=== PATIENT | male | born 1965 | race Caucasian/White ===

== ENCOUNTER 2018-09-22 18:56 | Inpatient (IN) | payer OTHER ==
--- OUTSIDE RECORDS SUMMARY | 2018-09-22 18:58 | XMS REPORT ---
:1965 [facility] Address [address] [place] [address] [address] [place] [address] Care Team Providers Name Role Phone Unavailable Unavailable Unavailable Payers Payer Name Policy Type Policy Number Effective Date Expiration Date Problems This patient has no known problems. Allergies, Adverse Reactions, Alerts Allergy Allergy Status Severity Reaction(s) Onset Inactive Treating Comments Name Type Date Date Clinician No Known DA Active U 2018-06 Allergies 23 00:00:0 0 Medications This patient has no known medications. Results Test Description Test Time Test Comments Text Results Atomic Results Result Comments CBC W/O DIFF 2018-07-18 05:45:00 Test Item Value Reference Range Comments WHITE BLOOD CELL (test code=WBC) 8.0 K/mm3 4.5-12.5 RED BLOOD CELL (test code=RBC) 4.24 mill/mm3 4.0-5.8 HEMOGLOBIN (test code=HGB) 13.7 gram/dL 13.0-17.5 RESULT VERIFIED BY REPEAT ANALYSIS HEMATOCRIT (test code=HCT) 40.5 % 42.0-52.0 MEAN CELL VOLUME (test code=MCV) 95.5 fL 80-98 MEAN CELL HGB (test code=MCH) 32.3 picogram 27.0-33.0 MEAN CELL HGB CONCETRATION (test 33.8 gram/dL 33.0-36.0 code=MCHC) RED CELL DISTRIBUTION WIDTH (test 12.5 % 11.6-16.2 code=RDW) PLATELET COUNT (test code=PLT) 171 K/mm3 150-450 MEAN PLATELET VOLUME (test 10.5 fL 6.7-11.0 code=MPV) - XR ABDOMEN AP 1 [id number] 12:16:00 FAX: Raquel Borges MD [place]: B St: [facility] FAX: Gavin Pedraza [phone] -- Name: ARPIT PERLA [facility] : 1965 Age/S: 52/M [address] [facility] Unit #: [id number] Loc: V.[address] [place] [address] Phys: Gavin Pedraza MD Acct: [id number] Dis Date: Status: ADM IN PHONE #: [phone] Exam Date: 07/17/2018 1110 FAX #: [phone] Reason: SBO F/U. PATIENT HAD MULTIPLE BMS THIS MORNING EXAMS: CPT CODE: [id number] XR ABDOMEN AP 1 V 19438 HISTORY: Small bowel obstruction follow-up. COMPARISON: X-ray from same day. Slight decrease in the small bowel distention. Air is noted throughout the colon as well. Close follow-up recommended. No pathologic calcification. IMPRESSION: Slight decrease distention of the small bowel may suggest resolving obstruction. Close follow-up to resolution. Air is noted throughout the colon. at 1216 Reported and signed by: Justin Gamboa M.D. CC: Raquel Morris MD; Gavin Pedraza MD Technologist: RT URSULA( Isacc) Trnscrd Date/Time/By: 07/17/2018 (1216) : By: [email or web address] Orig Print D/T: S: 07/17/2018 (9543) PAGE 1 Signed ReportCOMPREHENSIVE METABOLIC [id number] 07:48:00 Test Item Value Reference Range Comments SODIUM (test code=NA) 134 mmol/L 136-145 POTASSIUM (test code=K) 4.6 mmol/L 3.5-5.1 CHLORIDE (test code=CL) 101.0 mmol/L 98-107 CARBON DIOXIDE (test 17.0 mmol/L 21-32 code=CO2) ANION GAP (test code=GAP) 20.6 10-20 GLUCOSE (test code=GLU) 87 mg/dL 74-106 BLOOD UREA NITROGEN (test 22 mg/dL 7-18 code=BUN) GLOMERULAR FILTRATION RATE 58 mL/min >=60 Estimated GFR by using (test code=GFR) Modified MDRD formula.Chronic kidney disease is defined as either kidney damageor GFR <60 mL/min/1.73 m2 for >3 months. CREATININE (test code=CREAT) 1.30 mg/dL 0.7-1.3 BUN/CREATININE RATIO (test 16.9 10-20 code=BUN/CREA) TOTAL PROTEIN (test 8.6 gram/dL 6.4-8.2 code=PROT) ALBUMIN (test code=ALB) 4.1 g/dL 3.4-5.0 GLOBULIN (test code=GLOB) 4.5 gram/dL 2.7-4.2 ALBUMIN/GLOBULIN RATIO (test 0.9 0.75-1.50 code=A/G) CALCIUM (test code=CA) 9.4 mg/dL 8.5-10.1 BILIRUBIN TOTAL (test 1.00 mg/dL 0.0-1.0 code=BILT) SGOT/AST (test code=AST) 26 IUnit/L 15-37 SGPT/ALT (test code=ALT) 32 IUnit/L 12-78 ALKALINE PHOSPHATASE TOTAL 115 IUnit/L 45-117 Note change in reference (test code=ALKP) range due to change in reagent. COMPREHENSIVE METABOLIC [id number] 07:24:00 Test Item Value Reference Range Comments SODIUM (test code=NA) 134 mmol/L 136-145 POTASSIUM (test code=K) 4.6 mmol/L 3.5-5.1 CHLORIDE (test code=CL) 101.0 mmol/L 98-107 CARBON DIOXIDE (test code=CO2) mmol/L 21-32 ANION GAP (test code=GAP) 10-20 GLUCOSE (test code=GLU) mg/dL 74-106 BLOOD UREA NITROGEN (test code=BUN) mg/dL 7-18 GLOMERULAR FILTRATION RATE (test code=GFR) mL/min >=60 CREATININE (test code=CREAT) mg/dL 0.7-1.3 BUN/CREATININE RATIO (test code=BUN/CREA) 10-20 TOTAL PROTEIN (test code=PROT) gram/dL 6.4-8.2 ALBUMIN (test code=ALB) g/dL 3.4-5.0 GLOBULIN (test code=GLOB) gram/dL 2.7-4.2 ALBUMIN/GLOBULIN RATIO (test code=A/G) 0.75-1.50 CALCIUM (test code=CA) mg/dL 8.5-10.1 BILIRUBIN TOTAL (test code=BILT) mg/dL 0.0-1.0 SGOT/AST (test code=AST) IUnit/L 15-37 SGPT/ALT (test code=ALT) IUnit/L 12-78 ALKALINE PHOSPHATASE TOTAL (test code=ALKP) IUnit/L 45-117 CBC W/AUTO [id number] 07:04:00 Test Item Value Reference Range Comments WHITE BLOOD CELL (test code=WBC) 19.4 K/mm3 4.5-12.5 RED BLOOD CELL (test code=RBC) 5.59 mill/mm3 4.0-5.8 HEMOGLOBIN (test code=HGB) 18.1 gram/dL 13.0-17.5 HEMATOCRIT (test code=HCT) 52.9 % 42.0-52.0 MEAN CELL VOLUME (test code=MCV) 94.6 fL 80-98 MEAN CELL HGB (test code=MCH) 32.4 picogram 27.0-33.0 MEAN CELL HGB CONCETRATION (test code=MCHC) 34.2 gram/dL 33.0-36.0 RED CELL DISTRIBUTION WIDTH (test code=RDW) 12.3 % 11.6-16.2 RED CELL DISTRIBUTION WIDTH SD (test 43.0 fL 37.0-51.0 code=RDW-SD) PLATELET COUNT (test code=PLT) 198 K/mm3 150-450 MEAN PLATELET VOLUME (test code=MPV) 10.5 fL 6.7-11.0 NEUTROPHIL % (test code=NT%) 87.9 % 39.0-69.0 IMMATURE GRANULOCYTE % (test code=IG%) 0.3 % 0.0-5.0 LYMPHOCYTE % (test code=LY%) 3.8 % 25.0-55.0 MONOCYTE % (test code=MO%) 7.7 % 0.0-10.0 EOSINOPHIL % (test code=EO%) 0.1 % 0.0-5.0 BASOPHIL % (test code=BA%) 0.2 % 0.0-1.0 NUCLEATED RBC % (test code=NRBC%) 0.0 % 0-0 NEUTROPHIL # (test code=NT#) 17.06 K/mm3 1.8-7.7 IMMATURE GRANULOCYTE # (test code=IG#) 0.06 x10 3/uL 0-0.03 LYMPHOCYTE # (test code=LY#) 0.74 K/mm3 1.0-5.0 MONOCYTE # (test code=MO#) 1.49 K/mm3 0-0.8 EOSINOPHIL # (test code=EO#) 0.01 K/mm3 0.0-0.5 BASOPHIL # (test code=BA#) 0.04 K/mm3 0.0-0.2 NUCLEATED RBC # (test code=NRBC#) 0.00 K/mm3 0.0-0.1 MANUAL DIFF REQUIRED (test code=MDIFF) NO - XR ABDOMEN AP 1 [id number] 04:13:00 FAX: Raquel Borges MD [phone] [place]: B St: ADM Name: ARPIT PERLA [facility] : 1965 Age/S: 52/M [address] Unit#: [id number] Loc: V.[address] [place] [address] Phys: Raquel Morris MD Acct: [id number] Dis Date: Status: ADM IN PHONE #: [phone] Exam Date: 07/17/20188 FAX #: [phone] Reason: small bowel obstruction EXAMS: CPT CODE : [id number] XR ABDOMEN AP 1 V 26739 AFTER HOURS SERVICE ON: 07/17/2018 4:12 AM Abdomen, 1 Supine View Location Code M12 History: small bowel obstruction Findings: Dilated central small bowel loops are seen in the upper abdomen measuring up to 5.0 cm. Distally, there is air and stool in the colon. The lung bases are not visualized. Impression: Findings consistent with small bowel obstruction. at 0413 Reported and signed by: Jun Castle M.D. CC: Raquel Morris MDTechnologist: Annia Gandhi Trnscrd Date/Time/By: 07/17/2018 (0413) : By: [email or web address] Orig Print D/T: S: 07/17/2018 (0416) PAGE1 Signed Report
[2018-09-22] MEDS ORDERED: NA CHLORIDE 0.9% 1,000 ML ONE ×2 (19:57→21:25)
[2018-09-22] MEDS ORDERED: ONDANSETRON 4 MG/2 ML VIAL ONE ×2 (19:57→20:55)
[2018-09-22 20:04] LABS: Absolute Lymphocytes (CBC) 0.8 K/uL (0.7-4.9); Basophils % 0.2 % (0-1.3); Eosinophils % 0.2 % (0-4.4); Hematocrit 49.6 % (39.6-49.0); Lymphocytes % 5.5 % (15.3-44.8); MPV 8.9 fL (7.6-11.3); Monocytes % 6.4 % (3.3-12.3); RBC Red Blood Cell Count 5.31 M/uL (4.33-5.43)
[2018-09-22 20:20] LABS: Albumin 4.2 g/dL (3.4-5.0); Bilirubin Direct 0.2 mg/dL (0-0.2); Bilirubin Total 0.9 mg/dL (0.2-1.0); Potassium 3.9 mmol/L (3.5-5.1); Protein, Total 8.2 g/dL (6.4-8.2)
--- NOTE | 2018-09-22 20:47 | RAD REPORT ---
EXAM DESCRIPTION: CT - Stone Protocol - 09/22/2018 8:18 pm CLINICAL HISTORY: Abdominal pain. Vomiting COMPARISON: None. TECHNIQUE: Computed axial tomography of the abdomen pelvis was obtained without oral or IV contrast. Lack of IV and oral contrast limits evaluation of solid organs, bowel, and vessels. Coronal reformat renee images were obtained and reviewed. All CT scans are performed using dose optimization technique as appropriate and may include automated exposure control or mA/KV adjustment according to patient size. FINDINGS: A renal calculus is not seen. An ureteral calculus is not noted. A bladder calculus is not present. 31 millimeter low to intermediate density lesion right lobe of liver Spleen, pancreas and adrenals appear grossly normal There is no evidence of diverticulitis. Mild to moderate dilatation of jejunum and proximal ileum. Distal ileum is decompressed. Small amount of ascites IMPRESSION: Small bowel obstruction 31 millimeter hepatic lesion does not represent a simple cyst. Ultrasound recommended for further daija luation
--- NOTE | 2018-09-22 21:07 | ER ---
Nurse's Notes [facility] Name: Rafi Crook Age: 52 yrs Sex: Male : 1965 Arrival Date: 09/22/2018 Time: 18:57 Bed 15 Private MD: Diagnosis: Other intestinal obstruction Presentation: 09/22 19:09 Presenting complaint: Patient states: Periumbilical abd pain that started at 2300 last la1 night with vomiting and some diarrhea. Pt reports similar episode about a month a half ago and said he said a high white count and almost an obstruction. Transition of care: patient was not received from another setting of care. Onset of symptoms was September 22, 2018. Risk Assessment: Do you want to hurt yourself or someone else? Patient reports no desire to harm self or others. Initial Sepsis Screen: Does the patient meet any 2 criteria? No. Patient's initial sepsis screen is negative. Does the patient have a suspected source of infection? No. Patient's initial sepsis screen is negative. Care prior to arrival: None. 19:09 Method Of Arrival: Ambulatory la1 19:09 Acuity: ANDREA 3 la1 Historical: - Allergies: 19:11 No Known Allergies; la1 - Home Meds: 19:11 lisinopril 10 mg Oral tab 1 tab once daily [Active]; Simvastatin Oral [Active]; la1 - PMHx: 19:11 Hypertension; Hyperlipidemia; la1 - PSHx: 19:11 left shoulder; la1 - Immunization history:: Adult Immunizations up to date. - Social history:: Smoking status: Patient/guardian denies using tobacco. - Ebola Screening: : No symptoms or risks identified at this time. Screenin:10 Abuse screen: Denies threats or abuse. Nutritional screening: No deficits noted. ea Tuberculosis screening: No symptoms or risk factors identified. Fall Risk None identified. Assessment: 19:10 General: Appears uncomfortable, Behavior is calm, cooperative, appropriate for age. ea Pain: Complains of pain in right lower quadrant and left lower quadrant Pain does not radiate. Pain currently is 10 out of 10 on a pain scale. Neuro: Level of Consciousness is awake, alert, obeys commands, Oriented to person, place, time, situation. Cardiovascular: Patient's skin is warm and dry. Respiratory: Airway is patent Respiratory effort is even, unlabored, Respiratory pattern is regular, symmetrical. GI: Abdomen is non-distended, Bowel sounds present X 4 quads. Abd is soft and non tender X 4 quads. Reports vomiting. Derm: Skin is pink, warm \T\ dry. 20:01 Reassessment: Patient and/or family updated on plan of care and expected duration. Pain ea level reassessed. Patient is alert, oriented x 3, equal unlabored respirations, skin warm/dry/pink. 21:14 Reassessment: Patient and/or family updated on plan of care and expected duration. Pain ea level reassessed. Patient is alert, oriented x 3, equal unlabored respirations, skin warm/dry/pink. Pt complaining of abdominal pain, provider notified, medication order obtained, medication administered, pt tolerated well. 21:59 Reassessment: Patient and/or family updated on plan of care and expected duration. Pain ea level reassessed. Patient is alert, oriented x 3, equal unlabored respirations, skin warm/dry/pink. Maggy Crook [id number] Patient states feeling better. Patient states symptoms have improved. 22:06 Reassessment: Patient and/or family updated on plan of care and expected duration. Pain ea level reassessed. Patient is alert, oriented x 3, equal unlabored respirations, skin warm/dry/pink. Report called to Prisca CONTEH. 22:26 Reassessment: Patient and/or family updated on plan of care and expected duration. Pain ea level reassessed. Patient is alert, oriented x 3, equal unlabored respirations, skin warm/dry/pink. Pt admitted to fourth floor, pt taken via stretcher per tech, pt tolerating well. No s/s of pain or discomfort noted at this time. Patient states feeling better. Patient states symptoms have improved. Vital Signs: 19:09 BP 176 / 104; Pulse 61; Resp 18; Temp 98.8; Pulse Ox 97% ; Weight 79.38 kg; Height 5 ea ft. 8 in. (172.72 cm); Pain 10/10; 20:04 BP 148 / 94; Pulse 56; Resp 18; Pulse Ox 97% on R/A; ea 21:14 BP 168 / 101; Pulse 62; Resp 18; Pulse Ox 97% ; Pain 10/10; ea 22:07 BP 116 / 73; Pulse 56; Resp 18; Temp 97.8; Pulse Ox 99% ; Pain 3/10; ea 19:09 Body Mass Index 26.61 (79.38 kg, 172.72 cm) ea ED Course: 18:57 Patient arrived in ED. as 19:08 Severiano Aguirre MD is Attending Physician. gs 19:08 Chantell Dubon, RN is Primary Nurse. ea 19:10 Triage completed. la1 19:10 Patient has correct armband on for positive identification. Bed in low position. Call ea light in reach. Side rails up X2. 19:10 Arm band placed on right wrist. Patient placed in an exam room, on a stretcher, on ea pulse oximetry. 19:50 Inserted saline lock: 20 gauge in right antecubital area, using aseptic technique. ea Blood collected. 20:02 Ultrasound completed. Patient tolerated well. sg3 20:15 CT completed. Patient tolerated procedure well. Patient moved to CT via stretcher. Patient moved back from CT. 20:18 CT Stone Protocol In Process Unspecified. EDMS 21:05 Basilio Arce MD is Hospitalizing Provider. 22:06 No provider procedures requiring assistance completed. Patient admitted, IV remains in ea place. Administered Medications: 19:49 Drug: Zofran 4 mg Route: IVP; Site: right antecubital; ea 20:10 Follow up: Response: No adverse reaction; Marked relief of symptoms ea 19:50 Drug: NS 0.9% 1000 ml Route: IV; Rate: 1 bolus; Site: right antecubital; ea 20:55 Follow up: Response: No adverse reaction; IV Status: Completed infusion; IV Intake: ea 1000ml 20:54 Drug: Zofran 4 mg Route: IVP; Site: right forearm; ea 22:08 Follow up: Response: No adverse reaction; Nausea is decreased ea 21:08 Drug: Dilaudid 0.5 mg Route: IVP; Site: right antecubital; ea 22:08 Follow up: Response: No adverse reaction; Pain is decreased ea 21:13 Drug: NS 0.9% 1000 ml Route: IV; Rate: 175 ml/hr; Site: right antecubital; ea 22:08 Follow up: IV Status: Infusion continued upon transfer ea Intake: 20:55 IV: 1000ml; Total: 1000ml. ea Outcome: 21:06 Decision to Hospitalize by Provider. 22:07 Admitted to Med/surg accompanied by tech, via stretcher, room 419, Report called to conor Cope RN 22: Condition: stable 22:07 Instructed on the need for admit. 22:27 Patient left the ED. ea Signatures: Dispatcher [employer] EDMS Wilfrid Huertas, Harish Soares RN RN la1 Chantell Dubon RN RN ea Starr, Gregory, MD MD gs Godinez, Hayley 3 Corrections: (The following items were deleted from the chart) 22:29 22:26 Reassessment: Patient and/or family updated on plan of care and expected ea duration. Pain level reassessed. Patient is alert, oriented x 3, equal unlabored respirations, skin warm/dry/pink. Pt admitted to fourth floor, pt taken via stretcher tolerating well. No s/s of pain or discomfort noted at this time. Patient states feeling better. Patient states symptoms have improved. ea
--- NOTE | 2018-09-22 21:08 | EDPHYS ---
Physician Documentation [facility] Name: Rafi Crook Age: 52 yrs Sex: Male : 1965 Arrival Date: 09/22/2018 Time: 18:57 Bed 15 Private MD: ED Physician Severiano Aguirre HPI: 09/22 21:01 This 52 yrs old Male presents to ER via Ambulatory with complaints of gs Abdominal Pain. 21:01 The patient presents with abdominal pain in the lower abdomen. Onset: The gs symptoms/episode began/occurred yesterday. The symptoms do not radiate. Associated signs and symptoms: Pertinent positives: nausea and vomiting. The symptoms are described as sharp. Modifying factors: The symptoms are alleviated by nothing, the symptoms are aggravated by food. Severity of pain: At its worst the pain was severe in the emergency department the pain is unchanged. The patient has experienced a previous episode, approximately 1 months ago. Historical: - Allergies: 19:11 No Known Allergies; la1 - Home Meds: 19:11 lisinopril 10 mg Oral tab 1 tab once daily [Active]; Simvastatin Oral [Active]; la1 - PMHx: 19:11 Hypertension; Hyperlipidemia; la1 - PSHx: 19:11 left shoulder; la1 - Immunization history:: Adult Immunizations up to date. - Social history:: Smoking status: Patient/guardian denies using tobacco. - Ebola Screening: : No symptoms or risks identified at this time. ROS: 21:01 All other systems are negative. gs Exam: 21:01 Head/Face: Normocephalic, atraumatic. Eyes: Pupils equal round and reactive to light, gs extra-ocular motions intact. Lids and lashes normal. Conjunctiva and sclera are non-icteric and not injected. Cornea within normal limits. Periorbital areas with no swelling, redness, or edema. ENT: Nares patent. No nasal discharge, no septal abnormalities noted. Tympanic membranes are normal and external auditory canals are clear. Oropharynx with no redness, swelling, or masses, exudates, or evidence of obstruction, uvula midline. Mucous membranes moist. Neck: Trachea midline, no thyromegaly or masses palpated, and no cervical lymphadenopathy. Supple, full range of motion without nuchal rigidity, or vertebral point tenderness. No Meningismus. Chest/axilla: Normal chest wall appearance and motion. Nontender with no deformity. No lesions are appreciated. Cardiovascular: Regular rate and rhythm with a normal S1 and S2. No gallops, murmurs, or rubs. Normal PMI, no JVD. No pulse deficits. Respiratory: Lungs have equal breath sounds bilaterally, clear to auscultation and percussion. No rales, rhonchi or wheezes noted. No increased work of breathing, no retractions or nasal flaring. Back: No spinal tenderness. No costovertebral tenderness. Full range of motion. Skin: Warm, dry with normal turgor. Normal color with no rashes, no lesions, and no evidence of cellulitis. MS/ Extremity: Pulses equal, no cyanosis. Neurovascular intact. Full, normal range of motion. Neuro: Awake and alert, GCS 15, oriented to person, place, time, and situation. Cranial nerves II-XII grossly intact. Motor strength 5/5 in all extremities. Sensory grossly intact. Cerebellar exam normal. Normal gait. 21:01 Constitutional: The patient appears alert, awake, uncomfortable. 21:01 Abdomen/GI: Palpation: moderate abdominal tenderness, in the right lower quadrant and left lower quadrant, rebound tenderness, is not appreciated. Vital Signs: 19:09 BP 176 / 104; Pulse 61; Resp 18; Temp 98.8; Pulse Ox 97% ; Weight 79.38 kg; Height 5 ea ft. 8 in. (172.72 cm); Pain 10/10; 20:04 BP 148 / 94; Pulse 56; Resp 18; Pulse Ox 97% on R/A; ea 21:14 BP 168 / 101; Pulse 62; Resp 18; Pulse Ox 97% ; Pain 10/10; ea 22:07 BP 116 / 73; Pulse 56; Resp 18; Temp 97.8; Pulse Ox 99% ; Pain 3/10; ea 19:09 Body Mass Index 26.61 (79.38 kg, 172.72 cm) ea MDM: 19:38 Patient medically screened. gs 21:01 Differential diagnosis: bowel obstruction, diverticulitis, gastritis, gastroesophageal gs reflux disease, non-specific abd pain, pancreatitis. Data reviewed: vital signs, nurses notes. Counseling: I had a detailed discussion with the patient and/or guardian regarding: the historical points, exam findings, and any diagnostic results supporting the discharge/admit diagnosis, lab results, radiology results, the need for further work-up and treatment in the hospital. Physician consultation: Dino Gordon MD and will see patient in inpatient room. 09/22 19:39 Order name: Basic Metabolic Panel; Complete Time: 20:46 09/22 19:39 Order name: CBC with Diff; Complete Time: 20:46 09/22 19:39 Order name: Hepatic Function; Complete Time: 20:46 09/22 19:39 Order name: Lipase; Complete Time: 20:46 09/22 19:39 Order name: CT Stone Protocol; Complete Time: 20:50 09/22 19:39 Order name: IV Saline Lock; Complete Time: 19:41 09/22 19:39 Order name: Labs collected and sent; Complete Time: 19:41 gs Administered Medications: 19:49 Drug: Zofran 4 mg Route: IVP; Site: right antecubital; ea 20:10 Follow up: Response: No adverse reaction; Marked relief of symptoms ea 19:50 Drug: NS 0.9% 1000 ml Route: IV; Rate: 1 bolus; Site: right antecubital; ea 20:55 Follow up: Response: No adverse reaction; IV Status: Completed infusion; IV Intake: ea 1000ml 20:54 Drug: Zofran 4 mg Route: IVP; Site: right forearm; ea 22:08 Follow up: Response: No adverse reaction; Nausea is decreased ea 21:08 Drug: Dilaudid 0.5 mg Route: IVP; Site: right antecubital; ea 22:08 Follow up: Response: No adverse reaction; Pain is decreased ea 21:13 Drug: NS 0.9% 1000 ml Route: IV; Rate: 175 ml/hr; Site: right antecubital; ea 22:08 Follow up: IV Status: Infusion continued upon transfer ea Disposition: 09/22/18 21:06 Hospitalization ordered by Basilio Arce for Inpatient Admission. Preliminary diagnosis is Other intestinal obstruction. - Bed requested for Telemetry/MedSurg (Inpatient). - Status is Inpatient Admission. ea - Condition is Stable. - Problem is new. - Symptoms are unchanged. UTI on Admission? No Critical care time excluding procedures: 21:01 Critical care time: Bedside Care: 10 minutes, Consultation: 10 minutes, Family gs Intervention: 10 minutes. Total time: 30 minutes Signatures: Dispatcher [employer] EDMS Harish So RN RN la1 Arianne Morris RN RN cg Chantell Dubon RN RN ea Starr, Gregory, MD MD gs Corrections: (The following items were deleted from the chart) 21:52 21:06 Hospitalization Ordered by Basilio Arce MD for Inpatient Admission. Preliminary cg diagnosis is Other intestinal obstruction. Bed requested for Telemetry/MedSurg (Inpatient). Status is Inpatient Admission. Condition is Stable. Problem is new. Symptoms are unchanged. UTI on Admission? No. gs 22:27 21:52 09/22/2018 21:06 Hospitalization Ordered by Basilio Arce MD for Inpatient ea Admission. Preliminary diagnosis is Other intestinal obstruction. Bed requested for Telemetry/MedSurg (Inpatient). Status is Inpatient Admission. Condition is Stable. Problem is new. Symptoms are unchanged. UTI on Admission? No.
[2018-09-22] MEDS ORDERED: HYDROMORPHONE HCL 0.5 MG/0.5 ML INJ ONE (21:16)
--- NOTE | 2018-09-22 21:59 | P.HP ---
Certification for Inpatient Patient admitted to: Inpatient With expected LOS: >2 Midnights Practitioner: I am a practitioner with admitting privileges, knowledge of patient current condition, hospital course, and medical plan of care. Services: Services provided to patient in accordance with Admission requirements found in Title 42 Section 412.3 of the Code of Federal Regulations Patient History Date of Service: 09/22/18 Reason for admission: SBO History of Present Illness: Mr Crook is a 52 years old male with history of HTN, Dyslipidemia, who start yesterday night with abdominal pain, diffuse, constant, later associated with nausea and vomiting. Last bowel movement last night, since so, he is not passing gas. Denied fever but has had chills. About 1 month ago, he had similar problem and was diagnosed with partial SBO, which resolved with conservative treatment. Current lab work shows Leukocytosis, CT abd and pelvis remarkable for SBO. He also has a 31 mm lesion in the liver which needs further work up. The patient's said that he has been loosing weight not intentional. The patient says that he has changed the shape of his stools in the last couple of months. - Past Medical/Surgical History -: HTN -: Dyslipidemia -: Partial SBO Past Surgical History: Reviewed- Non-Contributory - Family History Family History: Reviewed- Non-Contributory - Social History Smoking Status: Former smoker Alcohol use: Yes CD- Drugs: No Place of Residence: Home Review of Systems 10-point ROS is otherwise unremarkable Physical Examination - Physical Exam General: Alert, In no apparent distress HEENT: Atraumatic, PERRLA, Mucous membr. moist/pink, EOMI, Sclerae nonicteric Neck: Supple, 2+ carotid pulse no bruit, No LAD, Without JVD or thyroid abnormality Respiratory: Clear to auscultation bilaterally, Normal air movement Cardiovascular: Regular rate/rhythm, Normal S1 S2 Gastrointestinal: Hypoactive, Distended, Tenderness Musculoskeletal: No tenderness Integumentary: No rashes Neurological: Normal speech, Normal strength at 5/5 x4 extr, Normal tone, Normal affect Lymphatics: No axilla or inguinal lymphadenopathy - Studies Laboratory Data (last 24 hrs) 09/22/18 19:50: WBC 14.4 H, Hgb 17.3, Hct 49.6 H, Plt Count 206 09/22/18 19:50: Sodium 136, Potassium 3.9, BUN 14, Creatinine 1.25, Glucose 108 H, Total Bilirubin 0.9, AST 13 L, ALT 26, Alkaline Phosphatase 95, Lipase 140 Assessment and Plan - Problems (Diagnosis) (1) SBO (small bowel obstruction) Current Visit: Yes Status: Acute (2) HTN (hypertension) Current Visit: Yes Status: Acute Qualifiers: Hypertension type: essential hypertension Qualified Code(s): I10 - Essential (primary) hypertension (3) Dyslipidemia Current Visit: Yes Status: Acute - Plan The patient will be admitted to the hospital due to SBO. Will order NGT, IV fluids, NPO, consult Surgery team. Malignancy is within the differential diagnosis as etiology for his current symptoms, he will need GI evaluation down the road for colonoscopy. - Advance Directives Does patient have a Living Will: No Does patient have a Durable POA for Healthcare: No - Code Status/Comfort Care Code Status Assessed: Yes Code Status: Full Code
[2018-09-22] MEDS: NA CHLORIDE 0.9% 1,000 ML IV SCH (22:14)
[2018-09-22] MEDS ORDERED: ONDANSETRON 4 MG/2 ML VIAL IV PRN (22:14)
[2018-09-22] MEDS ORDERED: PHENOL 1.4% ORAL SPRAY 180ML MM PRN (23:37)
[2018-09-23] MEDS: MORPHINE 2 MG/ML SYR IV PRN ×5 (01:00→21:10)
[2018-09-23] MEDS: METRONIDAZOLE 500mg IVPB 500 MG/100 ML BAG IV SCH ×3 (01:01→16:20)
[2018-09-23] MEDS: NA CHLORIDE 0.9% 1,000 ML IV SCH ×3 (04:02→16:20)
[2018-09-23 04:27] LABS: Urine Appearance CLEAR; Urine Blood NEGATIVE (NEG); Urine Color DK YELLOW; Urine Glucose NEGATIVE (NEG); Urine Protein NEGATIVE (NEG); Urine Specific Gravity >=1.030 (1.005-1.030)
[2018-09-23 05:10] LABS: Urine Bilirubin NEGATIVE (NEG); Urine Microscopic Reflex NO UMIC
[2018-09-23 06:42] LABS: Absolute Lymphocytes (CBC) 1.4 K/uL (0.7-4.9); Basophils % 0.2 % (0-1.3); Eosinophils % 0.5 % (0-4.4); Hematocrit 50.3 % (39.6-49.0); Lymphocytes % 10.4 % (15.3-44.8); MPV 8.7 fL (7.6-11.3)
[2018-09-23 06:45] LABS: Magnesium 2.2 mg/dL (1.8-2.4); Potassium 3.8 mmol/L (3.5-5.1)
[2018-09-23] MEDS ORDERED: KCL 20 MEQ/100 mL IVPB 20 MEQ/100 ML BAG IV SCH (09:00)
[2018-09-23] MEDS ORDERED: HYDRALAZINE HCL 20 MG/ML VIAL IV PRN (09:18)
--- NOTE | 2018-09-23 09:25 | P.PN ---
Subjective Date of Service: 09/23/18 Primary Care Provider: Mariely Chief Complaint: SBO Subjective: Other (Patient feels better. Pain improved. Patient did have diarrhea this morning. NG tube in place.) Physical Examination - Vital Signs Temperature: 99.1 F Blood Pressure: 129/86 Pulse: 84 Respirations: 18 Pulse Ox (%): 97 - Physical Exam General: Alert, In no apparent distress, Oriented x3, Cooperative HEENT: Atraumatic Neck: Supple Respiratory: Clear to auscultation bilaterally, Normal air movement Cardiovascular: Normal pulses, Regular rate/rhythm Gastrointestinal: Normal bowel sounds, Soft and benign, Non-distended, No masses , No rebound, No guarding, Tenderness (Pain to the abdomen improved) Musculoskeletal: No erythema, No tenderness, No warmth Integumentary: No erythema, No warmth, No cyanosis Neurological: Normal speech, Normal strength at 5/5 x4 extr, Normal tone, Normal affect - Studies Laboratory Data (last 24 hrs) 09/22/18 19:50: WBC 14.4 H, Hgb 17.3, Hct 49.6 H, Plt Count 206 09/22/18 19:50: Sodium 136, Potassium 3.9, BUN 14, Creatinine 1.25, Glucose 108 H, Total Bilirubin 0.9, AST 13 L, ALT 26, Alkaline Phosphatase 95, Lipase 140 Medications List Reviewed: Yes Assessment & Plan Discharge Plan: Home Plan to discharge in: 48 Hours Physician Review Additional Text: Impression: Abdominal pain, nausea and vomiting secondary to small bowel obstruction with history of SBO Hypertension Hyperlipidemia Plan: Abdominal pain, nausea and vomiting secondary to small bowel obstruction: Patient remains NPO. NG tube in place. Patient did have diarrhea this morning. Patient reports history of small-bowel obstruction about 1-2 months ago. He has not seen GI. Continue to monitor closely. Surgery consulted. Await recommendation. Patient did report that he ate a great deal of overall vegetables and fruit last night. Education on diet addressed. Await further recommendations from surgery. Continue current management. Likely discharge in the next 48 hr with clinical improvement. Patient will need to see GI as an outpatient with colonoscopy in 6-8 weeks. Patient is from [place]. Patient plans to go back within the next month. I will turn the service over to Dr. Ac tomorrow. I will go over the plan of care with her. Hypertension: Hold his lisinopril at this time. Will provide medication IV as needed. Hyperlipidemia: Will hold his medication at this time. Time Spent Managing Pts Care (In Minutes): 55
[2018-09-23] MEDS: CIPROFLOXACIN 400mg IV 400 MG/200 ML BAG IV SCH ×2 (09:48→21:06)
[2018-09-23] MEDS ORDERED: MORPHINE 2 MG/ML SYR IV ONE (10:20)
--- NOTE | 2018-09-23 11:59 | RAD REPORT ---
EXAM DESCRIPTION: RAD - Abdomen Acute Series - 09/23/2018 6:03 am CLINICAL HISTORY: Abdominal pain, bloating. COMPARISON: None. FINDINGS: Lungs are clear. Heart size and vessels are normal. No pleural effusion, pneumothorax or o ther acute cardiopulmonary process seen. Left clavicular hardware is present. Previously noted small bowel obstruction pattern appears moderately improved. Enteric tube is in the stomach. No other suspicious for significant findings. IMPRESSION: Moderate improvement in SBO pattern since preceding day's CT study.
--- NOTE | 2018-09-23 18:29 | CON ---
Date of Consultation: 09/23/2018 Reason For Service: Small bowel obstruction. History Of Present Illness: This is the case of a 52-year-old patient with history of hypertension, came last night with abdominal pain, nausea, vomiting. He remembers having an episode like this abou t a month and a half ago resolve on his own. Does not even remember last night he was eating a lot o f vegetables roll by stool. Other than that, there is no recent traveling out of the country. There is no family members sick at home. Normally living in [place], so we have no documentation of any primary doctors in this area. Past Medical History: Hypertension, partial small bowel obstruction. Social History: He used to smoke. He drinks alcohol occasionally. Family History: Noncontributory. Review of Systems: Ten points otherwise unremarkable. The patient never had a colonoscopy, although he was advised to d o so. Physical Examination: General: The patient is awake and alert. HEENT: Pupils are equal and reactive, anicteric. Neck: Supple. Chest: Clear. HEART: S1, S2. Abdomen: Distended mildly distended no guarding or rebound. Mild tenderness too. Extremities: Good capillary refill. Rectal: Deferred. Laboratory Data: Blood work shows a WBC count of 14.4 with hemoglobin of 17.3, potassium 3.9, lipase 140. CAT scan of abdomen and pelvis interpreted by Dr. Ross last night as small bowel obstructio n. The patient also have a hepatic lesion about 21 mm that he claimed does not represent a cyst and ultrasound is recommended. The patient also has small amount of ascites too. The patient had abdomi nal x-rays done today shows some improvement of the small bowel obstruction. Assessment: This is a 52-year-old patient with small bowel obstruction. Apparently, he had an episo de like that a month and a half ago. He was not in this area. He just let it pass. Right now come with those findings again he has no previous surgeries other etiology of that is unknown at this mome nt. No previous colonoscopy, although he was advised to do so. The also mentioned that he migh t be losing some weight. From the surgical standpoint, we are going to discontinue at moment. He is passing flatus, so he may be resolving. Sukumar did some workup couple of workup for neoplastic dis ease also an ultrasound of the liver is recommended by the radiologist to clarify the findings of derek t liver. We explained to him the pros and cons of an evaluation, surgical intervention and also the differential diagnosis. From a just a simple gastroenteritis to even a neoplastic event since workup for cancer had not be has not been done. Even if he improves, this obstruction does not mean that melchor spence is going to forget about this. He must follow with the osteopathy doctor and his primary doctor. Apparently they are at [place]. Will follow the patient with you. AASHISH/ZION Voice ID: [id number] Report ID: [id number]
[2018-09-24] MEDS: METRONIDAZOLE 500mg IVPB 500 MG/100 ML BAG IV SCH ×3 (00:16→16:46)
[2018-09-24 04:28] LABS: Absolute Lymphocytes (CBC) 1.2 K/uL (0.7-4.9); Basophils % 0.5 % (0-1.3); Eosinophils % 2.4 % (0-4.4); Hematocrit 42.1 % (39.6-49.0); Lymphocytes % 14.5 % (15.3-44.8); MPV 9.1 fL (7.6-11.3); Monocytes % 9.7 % (3.3-12.3); RBC Red Blood Cell Count 4.41 M/uL (4.33-5.43)
[2018-09-24 04:37] LABS: Magnesium 1.9 mg/dL (1.8-2.4); Potassium 3.9 mmol/L (3.5-5.1)
[2018-09-24] MEDS: NA CHLORIDE 0.9% 1,000 ML IV SCH ×2 (06:14→08:08)
[2018-09-24] MEDS ORDERED: KCL 20 MEQ/100 mL IVPB 20 MEQ/100 ML BAG IV SCH (08:00)
[2018-09-24] MEDS: CIPROFLOXACIN 400mg IV 400 MG/200 ML BAG IV SCH ×2 (08:08→20:29)
--- NOTE | 2018-09-24 12:16 | RAD REPORT ---
EXAM DESCRIPTION: RAD - Abdomen W Erect - 09/24/2018 12:07 pm CLINICAL HISTORY: Abdominal pain COMPARISON: Acute abdomen series September 23, CT study September 22 TECHNIQUE: Supine and upright views of the abdomen were obtained. FINDINGS: NG tube has been removed since the prior study. Stomach remains decompressed. Colon is decompressed. No free air or pneumatosis. There has been no further improvement in the small bowel pattern since the prior day imaging. Upper abdominal dilated small bowel loops remain. IMPRESSION: No further improvement in the dilated small bowel pattern since prior day imaging. No free air, pneumatosis or emergent finding.
--- NOTE | 2018-09-24 12:32 | P.PN ---
Subjective Date of Service: 09/24/18 Primary Care Provider: [place] Chief Complaint: SBO Patient seen and examined at bedside with RN. Chart reviewed. Case discussed with general surgery. Patient at this time is doing well overall. NG tube removed yesterday. Has been tolerating his diet well. Denies having any nausea vomiting at this time as well. Review of Systems 10-point ROS is otherwise unremarkable Physical Examination - Vital Signs Temperature: 97.7 F Blood Pressure: 119/77 Pulse: 71 Respirations: 16 Pulse Ox (%): 98 - Physical Exam General: Alert, In no apparent distress HEENT: Atraumatic, PERRLA, EOMI Neck: Supple, JVD not distended Respiratory: Clear to auscultation bilaterally, Normal air movement Cardiovascular: Regular rate/rhythm, Normal S1 S2 Gastrointestinal: Normal bowel sounds, No tenderness Musculoskeletal: No tenderness Integumentary: No rashes Neurological: Normal speech, Normal tone, Normal affect Lymphatics: No axilla or inguinal lymphadenopathy - Studies Medications List Reviewed: Yes Assessment And Plan - Current Problems (Diagnosis) (1) SBO (small bowel obstruction) Current Visit: Yes Status: Acute Plan: Patient was small bowel obstruction on CT scan. -currently status post NG tube which was removed yesterday and was advanced to a full liquid diet. Doing well overall -general surgery consulted. Appreciated recommendations at this time -acute abdomen series yesterday with improvement. His acute abdomen series pending this time -will follow up with KUB and advance patient's diet. If doing well overall Patient can be discharged home in next 24-48 hr. (2) Dyslipidemia Current Visit: Yes Status: Chronic (3) HTN (hypertension) Current Visit: Yes Status: Chronic Qualifiers: Hypertension type: essential hypertension Qualified Code(s): I10 - Essential (primary) hypertension Discharge Plan: Home Plan to discharge in: 48 Hours - Code Status/Comfort Care Code Status Assessed: Yes Critical Care: No
[2018-09-24] MEDS: TRAMADOL HCL 50 MG TAB PO PRN ×2 (13:08→21:12)
--- NOTE | 2018-09-24 23:45 | PN ---
Date of Progress Note: 09/24/2018 Diagnosis: Small-bowel obstruction. Subjective: The patient is doing better. IV fluid was removed yesterday. Full liquid diet started today. He has no nausea, no vomiting. He says he passed some gas with a bowel movement. Objective: Chest: Clear. Abdomen: Soft and depressible. No guarding, rebound. Less distention. Extremities: Good capillary refill. Plan: Today, we are going to advance diet, ambulation. Once again, he was stressed out the importan ce of following up with his primary doctor to investigate his liver a little bit more deeper and also GI doctor for workout of the recurrent bowel obstructions. AASHISH/ZION Voice ID: [id number] Report ID: [id number]
[2018-09-25] MEDS: METRONIDAZOLE 500mg IVPB 500 MG/100 ML BAG IV SCH ×3 (00:11→16:25)
[2018-09-25 06:03] LABS: Absolute Lymphocytes (CBC) 1.4 K/uL (0.7-4.9); Basophils % 0.4 % (0-1.3); Eosinophils % 2.8 % (0-4.4); Hematocrit 42.9 % (39.6-49.0); Lymphocytes % 16.4 % (15.3-44.8); MPV 8.6 fL (7.6-11.3); Monocytes % 8.9 % (3.3-12.3); RBC Red Blood Cell Count 4.58 M/uL (4.33-5.43)
[2018-09-25 06:11] LABS: Potassium 3.4 mmol/L (3.5-5.1)
[2018-09-25] MEDS ORDERED: POTASSIUM CL SA 10 MEQ TAB PO ONE (08:00)
[2018-09-25] MEDS: CIPROFLOXACIN 400mg IV 400 MG/200 ML BAG IV SCH (09:26)
--- NOTE | 2018-09-25 12:26 | P.DS ---
Admission Date: 09/22/18 Discharge Date: 09/25/18 Primary Care Provider: [place] Disposition: ROUTINE DISCHARGE Discharge Condition: GOOD Reason for Admission: SBO Consultations: General surgery - Problems (1) SBO (small bowel obstruction) Current Visit: Yes Status: Acute (2) Dyslipidemia Current Visit: Yes Status: Chronic (3) HTN (hypertension) Current Visit: Yes Status: Chronic Qualifiers: Hypertension type: essential hypertension Qualified Code(s): I10 - Essential (primary) hypertension (4) Liver lesion Current Visit: Yes Status: Acute Brief History of Present Illness: Mr Crook is a 52 years old male with history of HTN, Dyslipidemia, who start yesterday night with abdominal pain, diffuse, constant, later associated with nausea and vomiting. Last bowel movement last night, since so, he is not passing gas. Denied fever but has had chills. About 1 month ago, he had similar problem and was diagnosed with partial SBO, which resolved with conservative treatment. Current lab work shows Leukocytosis, CT abd and pelvis remarkable for SBO. He also has a 31 mm lesion in the liver which needs further work up. The patient's said that he has been loosing weight not intentional. The patient says that he has changed the shape of his stools in the last couple of months. Hospital Course: Overall during the hospital stay patient remained stable Patient was initially admitted to the hospital for small bowel obstruction most likely secondary to adhesions from the surgery in the past. Patient had an NG tube placed and started on IV fluids along with antibiotics. Patient had marked improvement in his symptoms and thus NG-tube was discontinued. Patient continued to improve and his diet was advanced to clear liquid which she tolerated fine and thus it was advanced to a full liquid diet. Patient then was advanced to a GI soft which she tolerated well. No nausea or vomiting were noted. Patient then was discharged home under stable condition. While here in the hospital patient also had an abdominal CT done which was consistent with liver lesion. Abdominal ultrasound was done which was consistent with liver lesion with possibility of hemangioma. Patient is from [place] and his doctor is in [place]. At this time they were advised to follow up with the GI doctor and primary care doctor once back in [facility] state. Patient demonstrated understanding and thus was discharged home under stable condition. Possibility of malignant process vs benign hemangioma were discussed and the importance of followup was discussed with the patient. wanted to go back to [place] and get the workup started LASHA. Vital Signs/Physical Exam: Temp Pulse Resp BP Pulse Ox 97.6 F 77 16 136/77 97 09/25/18 08:00 09/25/18 08:00 09/25/18 08:00 09/25/18 08:00 09/25/18 08:00 Laboratory Data at Discharge: WBC 8.6 K/uL (4.3-10.9) 09/25/18 05:39 Hgb 15.1 g/dL (13.6-17.9) 09/25/18 05:39 Hct 42.9 % (39.6-49.0) 09/25/18 05:39 Plt Count 177 K/uL (152-406) D 09/25/18 05:39 Sodium 139 mmol/L (136-145) 09/25/18 05:39 Potassium 3.4 mmol/L (3.5-5.1) L 09/25/18 05:39 BUN 5 mg/dL (7-18) L 09/25/18 05:39 Creatinine 0.98 mg/dL (0.55-1.3) 09/25/18 05:39 Glucose 88 mg/dL (74-106) 09/25/18 05:39 Magnesium 2.0 mg/dL (1.8-2.4) 09/25/18 05:39 Total Bilirubin 0.9 mg/dL (0.2-1.0) 09/22/18 19:50 AST 13 U/L (15-37) L 09/22/18 19:50 ALT 26 U/L (12-78) 09/22/18 19:50 Alkaline Phosphatase 95 U/L (45-117) 09/22/18 19:50 Lipase 140 U/L (73-393) 09/22/18 19:50 Home Medications: Lisinopril [Prinivil*] 10 mg PO DAILY 09/22/18 Simvastatin 10 mg PO DAILY 09/22/18 Followup: Dino Gordon MD [ACTIVE - CAN ADMIT] -
--- NOTE | 2018-09-25 16:03 | RAD REPORT ---
EXAM DESCRIPTION: US - Abdomen Exam Complete - 09/25/2018 3:29 pm CLINICAL HISTORY: Right upper quadrant pain COMPARISON: Noncontrast CT study September 22 FINDINGS: Gallbladder size is normal. No gallstones, wall thickening or pericholecystic fluid. Commo n bile duct is normal with no common duct stone identified. Liver is 13 cm in maximum dimension. In t he inferior right lobe of the liver near the capsule there is a 4.4 cm oval hyperechoic mass. Also in the right lobe there is a small 16 millimeter heterogeneous mass. Smaller mass is nonspecific. The l arger mass is potentially a benign hemangioma. A more aggressive process is not excluded. Doppler daija luation shows normal blood flow in the portal vein. No liver capsule nodularity. No splenomegaly or focal splenic process. Spleen is 10 cm in maximum dimension. The pancreas is too o bscured by bowel gas for assessment. No gross abnormality seen on the noncontrast CT study. No hydronephrosis or suspicious mass in either kidney. Aorta and IVC show no suspicious findings. No bulky lymphadenopathy. Trace ascites is present matchin g the September 22 CT study. IMPRESSION: No gallbladder or biliary tree abnormality. Two right lobe liver masses are present. The smaller right lobe mass at 16 mm is nonspecific. The dom inant 4.4 centimeter mass is hyperechoic. The larger mass could be a hemangioma. A more aggressive liver process is not excluded. Follow-up hem angioma protocol contrast enhanced CT imaging using precontrast, postcontrast and delayed imaging wou ld be recommended. Pancreas is obscured by bowel. No gross abnormality of the pancreas on the September 22 CT study.
== END 2018-09-25 17:46 | disposition home or self-care (01) | DRG 390 ==
LOC: ER 18:56 → ERHOLD 21:42 → 4TH 22:08
PROVIDERS: ADMIT Internal Medicine; ATTEND Family Medicine
DX: K56.609 Unspecified intestinal obstruction, unspecified as to partial versus complete obstruction (principal); I10 Essential (primary) hypertension; E78.5 Hyperlipidemia, unspecified; K76.9 Liver disease, unspecified; Z87.891 Personal history of nicotine dependence
CPT/HCPCS: 36415; 74019; 74022; 74176; 76377; 76700; 80048; 80076; 81003; 83690; 83735; 84132; 85025; 87493; 99285; J0744; J1170; J2270; J2405; J7030